=== PATIENT | male | born 1970 | race Caucasian/White ===

== ENCOUNTER 2017-07-16 17:48 | Emergency (ER) | payer BC, OTHER ==
--- NOTE | 2017-07-16 17:59 | Emergency Department Record ---
History of Present Illness - General Chief Complaint: Laceration(s) Stated Complaint: R HAND LAC Time Seen by Provider: 07/16/17 17:59 Source: Patient Mode of Arrival: Ambulatory Limitations: No limitations - History of Present Illness Initial Commments: The patient is here due to a R hand lac which occurred about 30 minutes ago. He cut it on a knife. The patient denies any hand numbness or tingling or FB sensation. His Td is not UTD. Onset/Timin -: Minutes(s) - Related Data Home Medications Medication Instructions Recorded Confirmed Last Taken Bupropion HCl [Bupropion HCl Sr] 100 mg PO DAILY 07/16/17 07/16/17 07/16/17 Omeprazole 40 mg PO DAILY 07/16/17 07/16/17 07/16/17 RX: Sertraline HCl [Zoloft] 150 mg PO ASDIR 07/16/17 07/16/17 07/16/17 Previous Rx's Medication Instructions Recorded Cephalexin [Keflex] 500 mg PO QID #20 cap 07/16/17 Allergies Allergy/AdvReac Type Severity Reaction Status Date / Time No Known Drug Intolerances Allergy Unknown PT UNSURE Verified 07/16/17 17:52 OF REACTION Allergies: Allergy Unknown PT UNSURE Uncoded 07/16/17 17:52 OF REACTION Review of Systems Constitutional: Denies: Chills, Fever Physical Exam - General General Appearance: Alert, Cooperative, No acute distress - Head Head exam: Atraumatic, Normocephalic - Eye Eye exam: Normal appearance, PERRL - Extremities Extremities exam: negative: Normal inspection (There is a 1.2 cm lac to the R hand just distal to the 2nd MCP joint radial surface. The 2nd finger is NVI with normal sensation and tendon function. ) Image of Hand: 1 - 1.2 cm lac 2 - 1.2 cm lac. - Neurological Neurological exam: Alert. negative: Motor sensory deficit Course - Reevaluation(s) Reevaluation #1: Procedure note: The R hand lac was anesth. with 1.5 cc's Lido 1% with epi. The wound was prepped with betadine and lavaged with sterile saline. There was no FB seen. The lac was closed with 3 4.0 nylon sutures. There were no complications. 07/16/17 18:23 Disposition Disposition: Discharge Clinical Impression: Laceration of hand Qualifiers: Encounter type: initial encounter Foreign body presence: without foreign body Laterality: right Qualified Code(s): S61.411A - Laceration without foreign body of right hand, initial encounter Disposition: Home, Self-Care Condition: (2) Stable Instructions: Laceration (ED) Additional Instructions: Keep dry for 2 days then no soaking or swimming. Take the Keflex as directed and watch for signs of infection. Have the sutures removed in 10 days. Return to the ER for any problems or signs of infection. Prescriptions: Cephalexin [Keflex] 500 mg PO QID #20 cap Forms: Patient Portal Access Time of Disposition: 18:26 Quality - Quality Measures Quality Measures: N/A - Blood Pressure Screening View Details: Yes Does Patient Have Any of the Following: No Blood Pressure Classification: Normal BP Reading Systolic Measurement: 113 Diastolic Measurement: 74 Screening for High Blood Pressure: < Normal BP, F/U Not Required > [G8783]
[2017-07-16] MEDS ORDERED: Diph,Pert(Acell),Tet Vac 0.5 ML SYR IM ONE (18:06)
== END 2017-07-16 18:32 | disposition home or self-care (01) ==
LOC: ER 17:48
DX: S61.411A Laceration without foreign body of right hand, initial encounter (principal); W26.0XXA Contact with knife, initial encounter
CPT/HCPCS: 12001; 90715; 96372; 99283

== ENCOUNTER 2017-10-05 20:56 | Emergency (ER) | payer OTHER ==
[2017-10-05] MEDS ORDERED: METOCLOPRAMIDE HCL 10 MG/2 ML VIAL IVP ONE (21:37)
[2017-10-05] MEDS ORDERED: KETOROLAC 30 MG/ML VIAL IVP ONE (21:37)
[2017-10-05] MEDS ORDERED: DIPHENHYDRAMINE HCL 50 MG/ML VIAL IVP ONE (21:37)
--- NOTE | 2017-10-05 21:44 | Emergency Department Record ---
History of Present Illness - General Chief Complaint: Headache Migraine Stated Complaint: HEADACHE 2X DAYS,VOMITING Time Seen by Provider: 10/05/17 20:58 Source: Patient Mode of Arrival: Ambulatory Limitations: No limitations - History of Present Illness Initial Comments: 47 yo male presents to ED for evaluation of headache symptoms which began yesterday morning. Patient denies previous history of headaches, denies fevers , chills, or neck stiffness symptoms. Patient denies significant head injury symptoms, and denies anticoagulation use at home. Patient does report working approximately 70 hours in 3 days, states "I may be dehydrated". Patient denies health problems at his baseline. MD Complaint: Headache Onset/Timin -: Days(s) Onset Description: Gradual Location: Frontal Severity scale (1-10): 8 Quality: Full, Throbbing Consistency: Constant Worsens With: Light, Movement of head/neck, Noise Associated Symptoms: Nausea, Photophobia, Sensitivity to sound, Vomiting Treatments Prior to Arrival: Acetaminophen, Ibuprofen Treatment Prior to Arrival Comment:: last dose of motrin was at 3pm - Related Data Allergies Allergy/AdvReac Type Severity Reaction Status Date / Time No Known Drug Allergies Allergy Verified 10/05/17 21:10 Travel Screening - Travel/Exposure Within Last 30 Days Have you traveled within the last 30 days?: No - Travel Symptoms Symptom Screening: None Review of Systems Constitutional: Denies: Chills, Fever, Malaise, Night sweats Eyes: Denies: Eye discharge, Eye pain ENT: Denies: Congestion, Ear pain, Epistaxis Respiratory: Denies: Cough, Dyspnea Cardiovascular: Denies: Chest pain, Dyspnea on exertion Endocrine: Denies: Fatigue, Heat or cold intolerance Gastrointestinal: Reports: Nausea, Vomiting. Denies: Abdominal pain Genitourinary: Denies: Incontinence, Retention Musculoskeletal: Denies: Arthralgia, Back pain, Neck pain Skin: Denies: Bruising, Change in color Neurological: Reports: Headache. Denies: Abnormal gait, Confusion, Seizure, Tingling, Tremors Psychiatric: Denies: Anxiety Hematological/Lymphatic: Denies: Anemia, Blood Clots Past Medical History - SOCIAL HISTORY Smoking Status: Light tobacco smoker (<10/day) - RESPIRATORY Hx Respiratory Disorders: No - CARDIOVASCULAR Hx Cardio Disorders: No - NEURO Hx Neuro Disorders: No - GI Hx GI Disorders: Yes Hx Reflux: Yes Hx Hiatal Hernia: Yes Hx Irritable Bowel: Yes - Hx Genitourinary Disorders: No - ENDOCRINE Hx Endocrine Disorders: No - MUSCULOSKELETAL Hx Musculoskeletal Disorders: Yes - PSYCH Hx Psych Problems: Yes Hx Anxiety: Yes Hx Depression: Yes - HEMATOLOGY/ONCOLOGY Hx Hematology/Oncology Disorders: No Family Medical History Any Significant Family History?: Yes Hx Cancer: Father Hx Stroke: Grandparents Physical Exam - General General Appearance: Alert, Oriented x3, Cooperative, Moderate distress, Other ( Patient is holding a towel over his eyes, cannot visualize pupil reaction on examination and the patient is unable to keep his eys open for examination due to photophobia.) Limitations: No limitations - Head Head exam: Atraumatic, Normocephalic, Normal inspection Head exam detail: negative: Abrasion, Contusion, Beck's sign, General tenderness, Hematoma, Laceration - Eye Eye exam: negative: Periorbital swelling, Periorbital tenderness - ENT Ear exam: negative: Auricular hematoma, Auricular trauma Nasal Exam: negative: Active bleeding, Discharge, Dried blood, Foreign body Mouth exam: negative: Drooling, Laceration, Muffled voice, Tongue elevation - Neck Neck exam: Normal inspection, Other (Negative Kernigs/Brudzinski's). negative: Meningismus, Tenderness - Respiratory Respiratory exam: Normal lung sounds bilaterally. negative: Rales, Respiratory distress, Rhonchi, Stridor - Cardiovascular Cardiovascular Exam: Regular rate, Normal rhythm, Normal heart sounds - GI/Abdominal GI/Abdominal exam: Soft. negative: Rebound, Rigid, Tenderness - Rectal Rectal exam: Deferred - exam: Deferred - Extremities Extremities exam: Normal inspection. negative: Calf tenderness, Pedal edema, Tenderness - Back Back exam: Denies: CVA tenderness (R), CVA tenderness (L) - Neurological Neurological exam: Alert, Oriented X3. negative: Motor sensory deficit - Psychiatric Psychiatric exam: Normal affect, Normal mood - Skin Skin exam: Normal color. negative: Abrasion Type of lesion: negative: abrasion Course Vital Signs 10/05/17 21:10 Temperature 98.6 F Pulse Rate [ 80 Pulse Ox Probe] Respiratory 18 Rate Blood Pressure 137/97 [Left Arm] Pulse Ox 98 - Reevaluation(s) Reevaluation #1: 10/05/17 21:42 Patient was seen and examined, will trial migraine therapy and reassess. Patient has no meningeal signs on examination, and CT/LP do not appear indicated based on the patient's initial examination. Will reassess following analgesia to determine if further imaging/evaluation are indicated. Reevaluation #2: 10/05/17 22:32 Patient was reassessed, reports that his headache symptoms are down to 2/10. Patient ambulated to bathroom with steady gait, eyes wide open, and appears significantly improved. Patient has no evidence for SAH/Meningitis on my examination, and appears stable for discharge at this time with return for any worsening of his symptoms. Disposition Disposition: Discharge Clinical Impression: Acute headache Qualifiers: Headache type: unspecified Intractability: not intractable Qualified Code(s): R51 - Headache Disposition: Home, Self-Care Condition: (2) Stable Instructions: Acute Headache (ED) Additional Instructions: Return to ED if your symptoms worsen or if you have any concerns. Follow-up with your family doctor in 3-5 days as directed. Forms: Patient Portal Access Time of Disposition: 22:34 Quality - Quality Measures Quality Measures: N/A - Blood Pressure Screening Does Patient Have Any of the Following: No Blood Pressure Classification: Normal BP Reading Systolic Measurement: 105 Diastolic Measurement: 72 Screening for High Blood Pressure: < Normal BP, F/U Not Required > [G8783]
[2017-10-05] MEDS ORDERED: 0.9 % SODIUM CHLORIDE 1000ML 1,000 ML IV SCH (21:45)
== END 2017-10-05 22:44 | disposition home or self-care (01) ==
LOC: ER 20:56
DX: R51 Headache (principal); F17.210 Nicotine dependence, cigarettes, uncomplicated
CPT/HCPCS: 99283 ×2; 96374; 96375; J1885; J1200; J2765; J7030

== ENCOUNTER 2017-10-06 12:25 | Emergency (ER) | payer OTHER ==
[2017-10-06] MEDS ORDERED: PROMETHAZINE HCL 12.5 MG in 0.9 % SODIUM CHLORIDE 100ML 100 ML IVPB ONE (13:54)
[2017-10-06] MEDS ORDERED: 0.9 % SODIUM CHLORIDE 1,000 ML BAG IV ONE (13:54)
--- NOTE | 2017-10-06 14:15 | Emergency Department Record ---
History of Present Illness - General Chief Complaint: Headache Migraine Stated Complaint: HEADACHE Time Seen by Provider: 10/06/17 13:47 Source: Patient Mode of Arrival: Ambulatory Limitations: No limitations - History of Present Illness Initial Comments: pt has had a parks for 2 days. he does not have a hx of has. he was here last pm and recd fluids and meds. parks got better and is now severe again Complaint: Headache Onset/Timin -: Days(s) Onset Description: Gradual Location: Frontal, Left, Occipital, Temporal Severity: Moderate Severity scale (1-10): 7 Quality: Aching Consistency: Constant Improves With: Nothing Worsens With: None Associated Symptoms: Photophobia Treatments Prior to Arrival: Acetaminophen, Ibuprofen - Related Data Allergies Allergy/AdvReac Type Severity Reaction Status Date / Time No Known Drug Allergies Allergy Verified 10/05/17 21:10 Travel Screening - Travel/Exposure Within Last 30 Days Have you traveled within the last 30 days?: No - Travel/Exposure Within Last Year Have you traveled outside the [place] in the last year?: No - Additonal Travel Details Have you been exposed to anyone with a communicable illness?: No - Travel Symptoms Symptom Screening: None Review of Systems Reviewed: No additional complaints except as noted below Constitutional: Reports: As per HPI. Denies: Chills, Fever, Malaise, Night sweats, Weakness, Weight change Eyes: Reports: As per HPI. Denies: Eye discharge, Eye pain, Photophobia, Vision change ENT: Reports: As per HPI. Denies: Congestion, Dental pain, Ear pain, Epistaxis , Hearing loss, Throat pain Respiratory: Reports: As per HPI. Denies: Cough, Dyspnea, Hemoptysis, Stridor, Wheezes Cardiovascular: Reports: As per HPI. Denies: Arrhythmia, Chest pain, Dyspnea on exertion, Edema, Murmurs, Orthopnea, Palpitations, Paroxysmal nocturnal dyspnea, Rheumatic Fever, Syncope Endocrine: Reports: As per HPI. Denies: Fatigue, Heat or cold intolerance, Polydipsia, Polyuria Gastrointestinal: Reports: As per HPI, Nausea. Denies: Abdominal pain, Constipation, Diarrhea, Hematemesis, Hematochezia, Melena, Vomiting Genitourinary: Reports: As per HPI. Denies: Dysuria, Frequency, Hematuria, Incontinence, Retention, Testicular pain, Testicular mass, Urgency Musculoskeletal: Reports: As per HPI. Denies: Arthralgia, Back pain, Gout, Joint swelling, Myalgia, Neck pain Skin: Reports: As per HPI. Denies: Bruising, Change in color, Change in hair/ nails, Lesions, Pruritus, Rash Neurological: Reports: As per HPI, Headache. Denies: Abnormal gait, Confusion, Numbness, Paresthesias, Seizure, Tingling, Tremors, Vertigo, Weakness Psychiatric: Reports: As per HPI. Denies: Anxiety, Auditory hallucinations, Depression, Homicidal thoughts, Suicidal thoughts, Visual hallucinations Hematological/Lymphatic: Reports: As per HPI. Denies: Anemia, Blood Clots, Easy bleeding, Easy bruising, Swollen glands Past Medical History - SOCIAL HISTORY Smoking Status: Light tobacco smoker (<10/day) Alcohol Use: None Drug Use: None - RESPIRATORY Hx Respiratory Disorders: No - CARDIOVASCULAR Hx Cardio Disorders: No - NEURO Hx Neuro Disorders: No - GI Hx GI Disorders: Yes Hx Reflux: Yes Hx Hiatal Hernia: Yes Hx Irritable Bowel: Yes - Hx Genitourinary Disorders: No - ENDOCRINE Hx Endocrine Disorders: No - MUSCULOSKELETAL Hx Musculoskeletal Disorders: Yes - PSYCH Hx Psych Problems: Yes Hx Anxiety: Yes Hx Depression: Yes - HEMATOLOGY/ONCOLOGY Hx Hematology/Oncology Disorders: No Family Medical History Any Significant Family History?: Yes Hx Cancer: Father Hx Stroke: Grandparents Physical Exam - General General Appearance: Alert, Oriented x3, Cooperative, Mild distress - Head Head exam: Normal inspection - Eye Eye exam: Normal appearance, PERRL, EOMI Pupils: Normal accommodation - ENT ENT exam: Normal exam, Mucous membranes moist, Normal external ear exam, Normal orophraynx Ear exam: Normal external inspection. negative: External canal tenderness Nasal Exam: Normal inspection. negative: Discharge, Sinus tenderness Mouth exam: Normal external inspection, Tongue normal Teeth exam: Normal inspection. negative: Dental caries Throat exam: Normal inspection. negative: Tonsillar erythema, Tonsillar exudate - Neck Neck exam: Normal inspection, Full ROM. negative: Tenderness - Respiratory Respiratory exam: Normal lung sounds bilaterally. negative: Respiratory distress - Cardiovascular Cardiovascular Exam: Regular rate, Normal rhythm, Normal heart sounds - GI/Abdominal GI/Abdominal exam: Soft, Normal bowel sounds. negative: Tenderness - Rectal Rectal exam: Deferred - exam: Deferred - Extremities Extremities exam: Normal inspection, Full ROM, Normal capillary refill. negative: Tenderness - Back Back exam: Reports: Normal inspection, Full ROM. Denies: Muscle spasm, Rash noted, Tenderness - Neurological Neurological exam: Alert, CN II-XII intact, Normal gait, Oriented X3 - Psychiatric Psychiatric exam: Normal affect, Normal mood - Skin Skin exam: Dry, Intact, Normal color, Warm Course Vital Signs 10/06/17 13:41 Temperature 98 F Pulse Rate 71 Respiratory 16 Rate Blood Pressure 98/72 Pulse Ox 99 Medical Decision Making - Lab Data Result diagrams: 10/06/17 14:05 10/06/17 14:05 Disposition Disposition: Discharge Clinical Impression: Headache Qualifiers: Headache type: unspecified Headache chronicity pattern: unspecified pattern Intractability: intractable Qualified Code(s): R51 - Headache Disposition: Home, Self-Care Condition: (1) Good Instructions: Acute Headache (ED) Additional Instructions: follow up with family doctor. return sooner if worse Forms: Patient Portal Access Quality - Quality Measures Quality Measures: N/A - Blood Pressure Screening Does Patient Have Any of the Following: No Blood Pressure Classification: Normal BP Reading Systolic Measurement: 98 Diastolic Measurement: 72 Screening for High Blood Pressure: < Normal BP, F/U Not Required > [G8783]
[2017-10-06 14:20] LABS: BASO % 0.5 % (0-6); EOS % 1.4 % (0-6); GRAN % 69.4 % (47-80); HEMATOCRIT 42.3 % (42.0-52.0); HEMOGLOBIN 14.4 gm/dl (14.0-18.0); LYMPH % 23.6 % (16-45); MEAN CELL VOLUME 85.6 fl (81-97); MEAN CORPUSCULAR HEMOGLOBIN 29.1 pg (27-33); MEAN PLATELET VOLUME 9.8 fl (7.4-10.4); MONO % 5.1 % (0-9); PLATELET COUNT 192 K/uL (130-400); RED BLOOD COUNT 4.94 M/uL (4.40-5.70); RED CELL DISTRIBUTION WIDTH 13.4 % (11.5-14.5); WHITE BLOOD COUNT W/O DIFF 7.3 K/uL (4.2-12.2)
[2017-10-06 14:32] LABS: BLOOD UREA NITROGEN 31 mg/dL (6-20); CREATININE 0.9 mg/dL (0.7-1.2); EST GLOMERULAR FILTRATION RATE > 60 mL/min
[2017-10-06 14:35] LABS: GLUCOSE,RANDOM 80 mg/dL (74-109)
[2017-10-06] MEDS ORDERED: HYDROMORPHONE HCL 2 MG/ML VIAL IVP ONE (15:30)
--- NOTE | 2017-10-08 11:20 | CT SCAN REPORT ---
EXAM: CT SCAN HEAD WO CONTRAST HISTORY: SEVERE HEADACHE FOR THREE DAYS, NO KNOWN INJURY. TECHNIQUE: CT scan of the head without contrast. COMPARISON: CT head, 04/30/2012. FINDINGS: No midline shift, mass effect, or intra- or extra-axial fluid collection. No cerebral edema, focal mass, or intracranial hemorrhage detected. Ventricle sizes are within normal limits. Basal cisterns appear patent. Lovell-white interface is preserved. No displaced skull fracture detected. Visualized paranasal sinuses and mastoid air cells are clear. IMPRESSION: NO ACUTE INTRACRANIAL FINDINGS. JOB NUMBER: [id number] [facility]
== END 2017-10-06 16:26 | disposition home or self-care (01) ==
LOC: ER 12:25
DX: R51 Headache (principal); H53.149 Visual discomfort, unspecified; F17.210 Nicotine dependence, cigarettes, uncomplicated
CPT/HCPCS: 99284 ×2; 96374; 96375; 85025; 82375; 80048; 70450; J1170; J2550; J7030

== ENCOUNTER 2018-01-06 21:09 | Emergency (ER) | payer OTHER ==
[2018-01-06] MEDS ORDERED: DIAZEPAM (VALIUM) 5MG/ML **10ML VIAL IM ONE (21:17)
[2018-01-06] MEDS ORDERED: KETOROLAC 60 MG/2 ML VIAL IM STA (21:17)
--- NOTE | 2018-01-06 21:24 | Emergency Department Record ---
History of Present Illness - General Chief Complaint: Back Pain/Injury Stated Complaint: BACK PAIN Time Seen by Provider: 01/06/18 21:10 Source: Patient Mode of Arrival: Ambulatory Limitations: No limitations - History of Present Illness Initial Comments: 47 yo male presents to ED for evaluation of left lower back pain and spasm after the patient tripped over a his shoes and attempted to catch himself resulting in twisting injury. Patient reports a history of spinal nerve stimulator placement 3-4 years ago due to degenerative disc disease. Patient denies numbness, tingling, or lower extremity weakness. Patient also denies urinary retention symptoms. Patient reports taking Ibuprofen and Bio-freeze prior to arrival. MD Complaint: Back pain Onset/Timin -: Hour(s) Similar Symptoms Previously: Yes Place: Home Radiation: None Severity: Severe Quality: Sharp, Stabbing Consistency: Constant Improves With: Immobilization Worsens With: Movement Context: Turning/twisting Associated Symptoms: Denies other symptoms Treatments Prior to Arrival: NSAIDS - Related Data Previous Rx's Medication Instructions Recorded Diazepam [Valium] 10 mg PO Q8H PRN #10 tab 01/06/18 Allergies Allergy/AdvReac Type Severity Reaction Status Date / Time No Known Drug Allergies Allergy Verified 10/05/17 21:10 Review of Systems Constitutional: Denies: Chills, Fever, Malaise, Night sweats Eyes: Denies: Eye discharge, Eye pain ENT: Denies: Congestion, Ear pain, Epistaxis Respiratory: Denies: Cough, Dyspnea Cardiovascular: Denies: Chest pain, Dyspnea on exertion Endocrine: Denies: Fatigue, Heat or cold intolerance Gastrointestinal: Denies: Abdominal pain, Constipation, Vomiting Genitourinary: Denies: Incontinence, Retention Musculoskeletal: Reports: Back pain. Denies: Arthralgia, Gout, Joint swelling Skin: Denies: Bruising, Change in color Neurological: Denies: Abnormal gait, Confusion, Headache, Seizure Psychiatric: Denies: Anxiety Hematological/Lymphatic: Denies: Anemia, Blood Clots Past Medical History - SOCIAL HISTORY Smoking Status: Light tobacco smoker (<10/day) - RESPIRATORY Hx Respiratory Disorders: No - CARDIOVASCULAR Hx Cardio Disorders: No - NEURO Hx Neuro Disorders: No - GI Hx Hiatal Hernia: Yes Hx Irritable Bowel: Yes - Hx Genitourinary Disorders: No - ENDOCRINE Hx Endocrine Disorders: No - MUSCULOSKELETAL Hx Musculoskeletal Disorders: Yes - PSYCH Hx Psych Problems: Yes Hx Anxiety: Yes Hx Depression: Yes - HEMATOLOGY/ONCOLOGY Hx Hematology/Oncology Disorders: No Family Medical History Hx Cancer: Father Hx Stroke: Grandparents Physical Exam - General General Appearance: Alert, Oriented x3, Cooperative, Moderate distress Limitations: No limitations - Head Head exam: Atraumatic, Normocephalic, Normal inspection Head exam detail: negative: Abrasion, Contusion, Beck's sign, General tenderness, Hematoma, Laceration - Eye Eye exam: Normal appearance. negative: Conjunctival injection, Periorbital swelling, Periorbital tenderness, Scleral icterus - ENT Ear exam: negative: Auricular hematoma, Auricular trauma Nasal Exam: negative: Active bleeding, Discharge, Dried blood, Foreign body Mouth exam: negative: Drooling, Laceration, Muffled voice, Tongue elevation - Neck Neck exam: Normal inspection. negative: Meningismus, Tenderness - Respiratory Respiratory exam: Normal lung sounds bilaterally. negative: Rales, Respiratory distress, Rhonchi, Stridor - Cardiovascular Cardiovascular Exam: Regular rate, Normal rhythm, Normal heart sounds - GI/Abdominal GI/Abdominal exam: Soft. negative: Rebound, Rigid, Tenderness - Rectal Rectal exam: Deferred - exam: Deferred - Extremities Extremities exam: negative: Pedal edema, Tenderness - Back Back exam: Reports: Paraspinal tenderness (TTP left SI joint region/low lumbar region on examination.). Denies: CVA tenderness (R), CVA tenderness (L) - Neurological Neurological exam: Alert, Normal gait, Oriented X3 - Psychiatric Psychiatric exam: Normal affect, Normal mood - Skin Skin exam: Normal color. negative: Abrasion Type of lesion: negative: abrasion Course - Reevaluation(s) Reevaluation #1: 01/06/18 22:03 Patient reassessed, able to sit/stand with assist, reports that his symptoms are greatly improved. Patient denies urinary retention symptoms, denies lower extremity weakness symptoms, and denies numbness over the groin region. Patient has no clinical evidence for acute spinal cord compression syndrome on examination. Patient appears stable for discharge at this time with Valium as needed. Disposition Disposition: Discharge Clinical Impression: Lumbar strain Qualifiers: Encounter type: initial encounter Qualified Code(s): S39.012A - Strain of muscle, fascia and tendon of lower back, initial encounter Disposition: Home, Self-Care Condition: (2) Stable Instructions: Low Back Strain (ED) Additional Instructions: Return to ED if your symptoms worsen or if you have any concerns. Valium as directed. Follow-up with your family doctor in 3-5 days as directed. Prescriptions: Diazepam [Valium] 10 mg PO Q8H PRN #10 tab PRN Reason: Spasms Forms: Patient Portal Access Time of Disposition: 21:24 Quality - Quality Measures Quality Measures: N/A - Blood Pressure Screening Does Patient Have Any of the Following: No Blood Pressure Classification: Hypertensive Reading Systolic Measurement: 132 Diastolic Measurement: 98 Screening for High Blood Pressure: < First Hypertensive BP, F/U Documented > [ G8950] First Hypertensive Follow-up Interventions: Referral to alternative/primary care provider.
== END 2018-01-06 22:09 | disposition home or self-care (01) ==
LOC: ER 21:09
DX: S39.012A Strain of muscle, fascia and tendon of lower back, initial encounter (principal); F17.210 Nicotine dependence, cigarettes, uncomplicated; W22.8XXA Striking against or struck by other objects, initial encounter; Y92.009 Unspecified place in unspecified non-institutional (private) residence as the place of occurrence of the external cause
CPT/HCPCS: 99283 ×2; 96372; J3360; J1885

== ENCOUNTER 2018-07-21 09:38 | Day surgery (SDC) | payer BC ==
[2018-07-21] MEDS ORDERED: PROPOFOL 10 MG/ML VIAL IV ONE (09:39)
[2018-07-21] MEDS ORDERED: LIDOCAINE 2% MDV (20MG/ML) 20ML VIAL IV ONE (09:39)
[2018-07-21] MEDS ORDERED: FENTANYL PF 100MCG/2ML VIAL IV ONE (09:39)
--- NOTE | 2018-07-25 08:00 | Operative Note ---
SURGEON: Lashay Wheeler MD OPERATION: 1. ESOPHAGOGASTRODUODENOSCOPY. 2. COLONOSCOPY. INDICATIONS: This is a 48-year-old male with history of gastroesophageal reflux disease and chronic diarrhea who presented for both esophagogastroduodenoscopy and colonoscopy. POSTOPERATIVE DIAGNOSES: 1. Short-segment Hayes's esophageal mucosa, status post biopsies. 2. Normal stomach and duodenum. 3. Normal colon and terminal ileal mucosa. ANESTHESIA: Sedation is per Anesthesia. Pulse oximetry was monitored throughout the procedure to maintain O2 saturation of 90% or greater. Supplemental oxygen was administered via nasal cannula. Cardiac and vital signs were monitored throughout the duration of the procedure, and they were stable. The procedures of esophagogastroduodenoscopy and colonoscopy and risks and benefits of the procedures, including the risk of bleeding and perforation, among others, were explained to the patient who voiced understanding and agreed to have the procedures done. Physical examination was performed, and the patient was found stable for sedation. PROCEDURE: The patient was placed in the left lateral position. Sedation was initiated. A plastic bite block was inserted into the oral cavity. The Olympus [id number] gastroscope was introduced into the oral cavity and advanced to the proximal esophagus without difficulty. The esophageal mucosa was carefully examined upon introduction of the gastroscope. The proximal and mid esophageal mucosa appeared normal. In the distal esophagus there was short-segment Hayes's esophageal mucosa that was noted and was biopsied. The gastroscope was then advanced into the stomach, and surveillance of the stomach revealed normal gastric body, antrum, and fundus. The gastroscope was then advanced to the descending duodenum without difficulty. The duodenal bulb and mucosa appeared normal. Multiple duodenal biopsies were obtained to rule out celiac disease. The gastroscope was then withdrawn into the stomach and retroflexion was performed. There were no other lesions noted. The gastroscope was then withdrawn and the procedure was terminated. The patient tolerated procedure well without any immediate complications. He remained with stable vital signs and was repositioned for colonoscopy. A digital rectal exam was performed and showed some mild external hemorrhoids with no palpable rectal masses. An Olympus [id number]-180AL colonoscope was then inserted into the rectum under direct visualization. It was advanced to the cecum without difficulty. The ileocecal valve and appendiceal orifice were identified and photographed. The colonic mucosa was carefully examined upon introduction of the colonoscope. There were no lesions noted. The ileocecal valve was intubated and terminal ileal mucosa was inspected for about 10 cm and it appeared normal. The colonoscope was then withdrawn while carefully examining the colonic mucosal surfaces. The bowel preparation was good. In the rectum, retroflexion was performed and grade 1 internal hemorrhoids were noted. Multiple random colon biopsies were obtained to rule out microscopic colitis. The procedure was then terminated. The patient tolerated the procedure well without any immediate complications. The patient remained with stable vital signs and was transferred to the recovery room. RECOMMENDATIONS: 1. The patient should be on a high-fiber diet. 2. The patient is to have a repeat colonoscopy for screening in 10 years. Thank you for allowing me to participate in the care of your patient. CC: DO TARAH Lanza
== END 2018-07-21 12:10 | disposition home or self-care (01) ==
LOC: HOP 09:38
PROVIDERS: ATTEND Internal Medicine Gastroenterology
DX: K21.9 Gastro-esophageal reflux disease without esophagitis (principal); K52.9 Noninfective gastroenteritis and colitis, unspecified; K22.70 Barrett's esophagus without dysplasia; K52.831 Collagenous colitis
CPT/HCPCS: 45380; 43239; 00813; J3010

== ENCOUNTER 2018-07-21 13:10 | Emergency (ER) | payer SELFPAY ==
--- NOTE | 2018-07-21 13:30 | Emergency Department Record ---
History of Present Illness - General Chief complaint: Extremity Problem Stated complaint: wrist /thumb injury/wc Time Seen by Provider: 07/21/18 13:22 Source: Patient Mode of Arrival: Ambulatory Limitations: No limitations - History of Present Illness Initial comments: 48 yo male presents for a re-evaluation of a thumb injury that occurred yesterday. He slipped on stairs and caught the thumb on a rail. He was seen in an Urgent Care, XR performed, and he was splinted. No other injuries or complaints. He is not certain of the ready care diagnosis. MD Complaint: Joint pain -: Days(s) Location: Left -: Yes Arthralgia Radiation: Distal Quality: Aching Consistency: Constant Improves with: Elevation Worsens with: Palpation, Weight bearing Associated Symptoms: Denies other symptoms - Related Data Home Medications Medication Instructions Recorded Confirmed Last Taken Naproxen Sodium [Aleve] 440 mg PO DAILY 07/21/18 07/21/18 07/21/18 Previous Rx's Medication Instructions Recorded Hydrocodone/APAP 5/325Mg [Epps 1 each PO Q6H #8 tab 07/21/18 5Mg/325Mg] Allergies Allergy/AdvReac Type Severity Reaction Status Date / Time No Known Drug Allergies Allergy Unverified 06/13/18 10:20 Review of Systems Constitutional: Denies: Chills, Fever, Malaise, Weakness Eyes: Denies: Eye discharge ENT: Denies: Congestion, Throat pain Respiratory: Denies: Cough Cardiovascular: Denies: Chest pain, Palpitations, Syncope Endocrine: Denies: Fatigue Gastrointestinal: Denies: Abdominal pain, Diarrhea, Nausea, Vomiting Genitourinary: Denies: Dysuria, Frequency, Hematuria Musculoskeletal: Reports: Arthralgia Skin: Reports: Bruising, Change in color Neurological: Denies: Headache Psychiatric: Denies: Anxiety Hematological/Lymphatic: Denies: Easy bleeding, Easy bruising Past Medical History - SOCIAL HISTORY Smoking Status: Current every day smoker - RESPIRATORY Hx Respiratory Disorders: No - CARDIOVASCULAR Hx Cardio Disorders: No - NEURO Hx Neuro Disorders: Yes Hx of Migraines: Yes (r/t medication at time) - GI Hx GI Disorders: Yes Hx Hiatal Hernia: Yes Hx Irritable Bowel: Yes - Hx Genitourinary Disorders: No - ENDOCRINE Hx Endocrine Disorders: No - MUSCULOSKELETAL Hx Musculoskeletal Disorders: Yes - PSYCH Hx Psych Problems: Yes Hx Anxiety: Yes Hx Depression: Yes - HEMATOLOGY/ONCOLOGY Hx Hematology/Oncology Disorders: No Family Medical History Hx Cancer: Father Hx Stroke: Grandparents Physical Exam - General General Appearance: Alert, Oriented x3, Cooperative, No acute distress Limitations: No limitations - Head Head exam: Atraumatic, Normal inspection - Eye Eye exam: Normal appearance - ENT ENT exam: Normal exam Ear exam: Normal external inspection Nasal Exam: Normal inspection Mouth exam: Normal external inspection - Neck Neck exam: Normal inspection - Cardiovascular Cardiovascular Exam: Regular rate - Extremities Extremities exam: Normal inspection, Normal capillary refill, Tenderness. negative: Joint swelling Image of Hand: 1 - tender, normal alignment, no significant swelling, intact skin - Neurological Neurological exam: Alert, Oriented X3. negative: Motor sensory deficit - Psychiatric Psychiatric exam: Normal affect, Normal mood - Skin Skin exam: Dry, Intact, Normal color, Warm Course - Reevaluation(s) Reevaluation #1: 07/21/18 14:20 XR was reviewed No fracture or dislocation Questionable widening of the scapho-lunate joint. Ligamentous injury can not be excluded. He will be splinted and recommend follow up 07/21/18 14:25 The patient was prescribed a controlled substance. The prescription does not exceed three days. MAPS was reviewed at the time of the prescripts The topics of abuse, addiction, over dose, dangers of multiple medications, disposal, and illegal distribution were discussed with the patient. The patient verbalized understanding of the risks of the medication being provided Disposition Disposition: Discharge Clinical Impression: Left wrist sprain Qualifiers: Encounter type: initial encounter Qualified Code(s): S63.502A - Unspecified sprain of left wrist, initial encounter Disposition: Home, Self-Care Condition: (1) Good Instructions: Wrist Sprain (ED) Additional Instructions: You will need follow up with your workman's comp You have mild widening of the scapho-lunate bones This could indicate a ligament injury I recommend follow up with a hand specialist or MRI Use the splint for support and comfort Prescriptions: Hydrocodone/APAP 5/325Mg [Epps 5Mg/325Mg] 1 each PO Q6H #8 tab Forms: Patient Portal Access Time of Disposition: 14:26 Quality - Quality Measures Quality Measures: N/A - Blood Pressure Screening Does Patient Have Any of the Following: No Blood Pressure Classification: Pre-Hypertensive BP Reading Systolic Measurement: 125 Diastolic Measurement: 81 Screening for High Blood Pressure: < Pre-Hypertensive BP, F/U Documented > [G8950] Pre-Hypertensive Follow-up Interventions: Referral to alternative/primary care provider.
[2018-07-21] MEDS ORDERED: HYDROCODONE/APAP 5/325MG TABLET PO ONE (13:33)
--- NOTE | 2018-07-24 19:14 | RADIOLOGY REPORT ---
EXAM: WRIST, LEFT 3 VIEWS HISTORY: PAIN NEAR BASE OF FIRST METACARPAL WITH MOTION ONE DAY POST FALL. TECHNIQUE: Four views of the left wrist. COMPARISON: None. ENCOUNTER: Initial. FINDINGS: There is normal bone mineralization. There is mild ulnar minus variance with early hypertrophic degenerative changes of the distal radial ulnar joint. No acute fracture nor dislocation. The scapholunate joint space appears borderline to mildly prominent, however. No definite dorsal or volar tilting of the lunate. The articular relations are otherwise maintained. No focal soft tissue abnormality. IMPRESSION: 1. NO CONVINCING ACUTE FRACTURE NOR DISLOCATION. 2. ULNAR MINUS VARIANCE WITH ASSOCIATED MILD DEGENERATIVE CHANGE OF THE DISTAL RADIAL ULNAR JOINT. 3. APPARENT BORDERLINE TO MILD WIDENING OF THE SCAPHOLUNATE JOINT SPACE PROXIMALLY. SCAPHOLUNATE LIGAMENT TEAR WOULD BE DIFFICULT TO EXCLUDE. JOB NUMBER: [id number] MTDD
== END 2018-07-21 14:35 | disposition home or self-care (01) ==
LOC: ER 13:10
DX: S63.502A Unspecified sprain of left wrist, initial encounter (principal); W10.9XXA Fall (on) (from) unspecified stairs and steps, initial encounter; Y92.89 Other specified places as the place of occurrence of the external cause; Y99.0 Civilian activity done for income or pay; F17.210 Nicotine dependence, cigarettes, uncomplicated
CPT/HCPCS: 99283